=== PATIENT | female | born 1970 | race Hispanic/Latino ===

== ENCOUNTER 2018-02-16 16:51 | Outpatient (CLI) | payer OTHER | END 2018-02-16 16:52 | disposition home or self-care (01) | LOC: BICRAD 16:51 | PROVIDERS: ATTEND Family Medicine | DX: R05 Cough (principal) | CPT/HCPCS: 71046 ==

== ENCOUNTER 2018-10-18 12:01 | Outpatient (CLI) | payer OTHER ==
--- NOTE | 2018-10-18 13:22 | RAD ---
LUMBAR SPINE SERIES 2 VIEWS: HISTORY: Back pain x 2 weeks. COMPARISON: 02/26/09 study. FINDINGS: Vertebral bodies are normal in height. Disk space height appears fairly well maintained. There are osteophytic changes seen along the course of the spine. No spondylolisthesis. IMPRESSION: Mild arthritic changes of the spine. POS: [facility]
== END 2018-10-18 12:02 | disposition home or self-care (01) ==
LOC: BICRAD 12:01
PROVIDERS: ATTEND Family Medicine
DX: M54.5 Low back pain (principal); M47.816 Spondylosis without myelopathy or radiculopathy, lumbar region
CPT/HCPCS: 72100

== ENCOUNTER 2019-02-14 10:18 | Outpatient (CLI) | payer OTHER ==
--- NOTE | 2019-02-14 10:53 | RAD ---
THREE VIEWS RIGHT FOOT: COMPARISON: None. HISTORY: Right foot pain with bruising. FINDINGS: Three views right foot show no evidence of acute fracture or dislocation. No degenerative changes ar e seen. No soft tissue swelling is seen. IMPRESSION: No evidence of acute osseous abnormality. POS: [facility]
== END 2019-02-14 10:19 | disposition home or self-care (01) ==
LOC: BICRAD 10:18
PROVIDERS: ATTEND Family Medicine
DX: M79.671 Pain in right foot (principal)

== ENCOUNTER 2019-07-19 15:21 | Outpatient (CLI) | payer OTHER ==
--- NOTE | 2019-07-19 15:39 | RAD ---
XR Elbow Rt 4 View STANDARD History: Pain Comparison: None. Findings: No acute fracture or malalignment. Chronic lateral epicondylitis. No significant joint effu ajson. Impression: Chronic lateral epicondylitis otherwise unremarkable exam.
--- NOTE | 2019-07-19 15:49 | RAD ---
RIGHT HAND THREE VIEWS: HISTORY: Right hand pain. COMPARISON: 02/26/2009 FINDINGS: No fracture, dislocation, bony destruction or significant arthritic changes are identified. POS: [facility]
--- NOTE | 2019-07-19 15:50 | RAD ---
RIGHT FOREARM TWO VIEWS: HISTORY: Right forearm pain. FINDINGS: The right radius and ulna are intact. No significant bony abnormalities are seen. POS: [facility]
== END 2019-07-19 15:22 | disposition home or self-care (01) ==
LOC: BICRAD 15:21
PROVIDERS: ATTEND Family Medicine
DX: M79.631 Pain in right forearm (principal); M25.521 Pain in right elbow; M79.641 Pain in right hand; M77.11 Lateral epicondylitis, right elbow

== ENCOUNTER 2019-10-31 09:55 | Outpatient (CLI) | payer OTHER ==
--- NOTE | 2019-11-01 12:41 | MMO ---
Bilateral MAMMO Bilat Screen DDI+YANIRA. CLINICAL HISTORY: Patient is 49 years old and is seen for screening. The patient has no family history of breast cancer. The patient has no personal history of cancer. VIEWS: The views performed were: bilateral craniocaudal with tomosynthesis and bilateral mediolateral oblique with tomosynthesis. FILMS COMPARED: The present examination has been compared to prior imaging studies performed at [facility] on 12/11/2012, 02/06/2014, 02/12/2015 and 06/21/2016. This study has been interpreted with the assistance of computer-aided detection. MAMMOGRAM FINDINGS: The breasts are heterogeneously dense, which could obscure a lesion on mammography. Finding 1: Benign calcifications are noted bilaterally. Finding 2: New tiny calcs are seen in the left retroaerolar region on CC view IMPRESSION: FINDING 1: FINDINGS IN BOTH BREASTS ARE BENIGN. FINDING 2: FINDING IN THE LEFT BREAST REQUIRES ADDITIONAL EVALUATION. SPOT MAGNIFICATION VIEW(S) ARE RECOMMENDED. THE RESULTS OF THIS EXAM WERE SENT TO THE PATIENT. ACR BI-RADS Category 0 - Incomplete: Need additional imaging evaluation. [facility] will notify the patient of the need for additional imaging services. MAMMOGRAPHY NOTE: 1. A negative mammogram report should not delay a biopsy if a dominant of clinically suspicious mass is present. 2. Approximately 10% to 15% of breast cancers are not detected by mammography. 3. Adenosis and dense breasts may obscure an underlying neoplasm. Reported by: ABRAM DONALDSON MD Electonically Signed: [id number]
== END 2019-10-31 09:56 | disposition home or self-care (01) ==
LOC: BICMAMMO 09:55
PROVIDERS: ATTEND Family Medicine
DX: Z12.31 Encounter for screening mammogram for malignant neoplasm of breast (principal)
CPT/HCPCS: 77063; 77067

== ENCOUNTER 2019-11-08 08:36 | Outpatient (CLI) | payer OTHER ==
--- NOTE | 2019-11-08 09:05 | MMO ---
Left Breast MAMMO Unilat Diag DDI LT+YANIRA. CLINICAL HISTORY: Patient is 49 years old and is seen for additional evaluation requested from prior study. The patient has no family history of breast cancer. The patient has no personal history of cancer. VIEWS: The views performed were: left craniocaudal spot compression magnification; left mediolateral spot compression magnification; and left mediolateral with tomosynthesis. FILMS COMPARED: The present examination has been compared to prior imaging studies performed at [facility] on 02/06/2014, 02/12/2015, 06/21/2016 and 10/31/2019. This study has been interpreted with the assistance of computer-aided detection. MAMMOGRAM FINDINGS: The breast is heterogeneously dense, which could obscure a lesion on mammography. There are calcifications with grouped or clustered distribution seen in the left breast at 12 o'clock. There are similar groupings of calcifications elsewhere in each breast. These were probably present on the 2016 exam, with limitations in evaluation due to the non-tomographic nature of the prior. IMPRESSION: CALCIFICATIONS IN THE LEFT BREAST ARE PROBABLY BENIGN. FOLLOW-UP IN 6 MONTHS IS RECOMMENDED. THE RESULTS OF THIS EXAM WERE SENT TO THE PATIENT. ACR BI-RADS Category 3 - Probably benign finding - short interval follow-up suggested. [facility] will notify the patient of the need for additional imaging services. MAMMOGRAPHY NOTE: 1. A negative mammogram report should not delay a biopsy if a dominant of clinically suspicious mass is present. 2. Approximately 10% to 15% of breast cancers are not detected by mammography. 3. Adenosis and dense breasts may obscure an underlying neoplasm. Reported by: GEORGE CULLEN MD Electonically Signed: [id number]
--- NOTE | 2019-11-08 13:00 | RAD ---
PA AND LATERAL CHEST: Date: 11/08/2019 HISTORY: Cough. COMPARISON: 11/04/2003 study. FINDINGS: Heart size and mediastinum are within normal limits. Lungs are clear of infiltrates. Elevation to the right hemidiaphragm again demonstrated. IMPRESSION: No active intrathoracic disease. Stable chest. POS: [facility]
== END 2019-11-08 08:37 | disposition home or self-care (01) ==
LOC: BICMAMMO 08:36
PROVIDERS: ATTEND Family Medicine
DX: R05 Cough (principal); R92.1 Mammographic calcification found on diagnostic imaging of breast
CPT/HCPCS: 71046; G0279

== ENCOUNTER 2020-05-22 09:32 | Outpatient (CLI) | payer OTHER ==
--- NOTE | 2020-05-22 10:42 | MMO ---
Left Breast MAMMO Unilat Diag DDI LT+YANIRA. CLINICAL HISTORY: Patient is 49 years old and is seen for diagnostic exam. The patient has no family history of breast cancer. The patient has no personal history of cancer. VIEWS: The views performed were: left craniocaudal with tomosynthesis; left mediolateral oblique with tomosynthesis; and left mediolateral with tomosynthesis. FILMS COMPARED: The present examination has been compared to prior imaging studies performed at [facility] on 06/21/2016, 10/31/2019, 11/08/2019 and 05/22/2020. This study has been interpreted with the assistance of computer-aided detection. MAMMOGRAM FINDINGS: The breast is heterogeneously dense, which could obscure a lesion on mammography. Finding 1: There are stable calcifications with grouped or clustered distribution seen in the anterior region of the left breast at 12 o'clock. Finding 2: A new tiny anterior nodule close to the skin is seen at 1-2:00 positon in the left breast which is palpable and appears solid on US IMPRESSION: FINDING 1: STABLE CALCIFICATIONS IN THE LEFT BREAST ARE PROBABLY BENIGN. FOLLOW-UP IN 6 MONTHS IS RECOMMENDED. FINDING 2: FINDING IN THE LEFT BREAST IS SUSPICIOUS. AN ULTRASOUND-GUIDED BREAST BIOPSY IS RECOMMENDED. THE RESULTS OF THIS EXAM WERE SENT TO THE PATIENT. ACR BI-RADS Category 4 - Suspicious abnormality - biopsy should be considered D/W pt in person @ 10:[address] Vandana Renteria over the phone @ 10:35 am MAMMOGRAPHY NOTE: 1. A negative mammogram report should not delay a biopsy if a dominant of clinically suspicious mass is present. 2. Approximately 10% to 15% of breast cancers are not detected by mammography. 3. Adenosis and dense breasts may obscure an underlying neoplasm. Reported by: ABRAM DONALDSON MD Electonically Signed: [id number]
--- NOTE | 2020-05-22 14:35 | ULT ---
LEFT BREAST ULTRASOUND: Date: 05/22/2020 HISTORY: Palpable mass at the 1-2 o'clock position of the left breast. FINDINGS: Correlation is made with mammograms from earlier today. Sonographic evaluation of the region of palpable abnormality between the 1 and 2 o'clock positions of the left breast demonstrates a well-circumscribed nonshadowing 5.0 x 2.0 x 5.0 mm solid nodule close to the skin. Since this is new, this should be biopsied. IMPRESSION: BI-RADS Category 4 - Suspicious abnormality. Since an ultrasound-guided biopsy is difficult to perfor m, recommend surgical consultation and excisional biopsy. Discussed in person with the patient at [address] Renteria at 1035 hours and 1325 hour s. CODE CR. POS: OFF
== END 2020-05-22 09:33 | disposition home or self-care (01) ==
LOC: BICMAMMO 09:32
PROVIDERS: ATTEND Family Medicine
DX: R92.8 Other abnormal and inconclusive findings on diagnostic imaging of breast (principal); R92.1 Mammographic calcification found on diagnostic imaging of breast
CPT/HCPCS: G0279

== ENCOUNTER 2020-09-04 13:24 | Outpatient (CLI) | payer OTHER ==
--- NOTE | 2020-09-04 14:36 | ULT ---
EXAM: US Breast Limited Lt PROVIDED CLINICAL HISTORY: Left breast palpable abnormalities COMPARISON: Diagnostic mammogram 09/04/2020, ultrasound 05/22/2020 FINDINGS: Limited sonographic interrogation was performed of the left breast in the region of 1:00. The sonogra [facility] appearance of the breast tissue in this region is normal. The previously described skin lesion is no longer evident compatible with the provided clinical history history of interval surgical excis ion with benign histology. IMPRESSION: No sonographic abnormality is evident in the region of clinical concern. Negative imaging findings sh ould not preclude further evaluation of a clinically suspicious finding. Patient is referred back to her clinician. BI-RADS 2 -- benign findings
--- NOTE | 2020-09-04 14:37 | MMO ---
Bilateral MAMMO Bilat Diag DDI+YANIRA. CLINICAL HISTORY: Patient is 49 years old and is seen for diagnostic exam. The patient has no family history of breast cancer. The patient has no personal history of cancer. The patient has a history of left Lumpectomy in June, - benign. VIEWS: The views performed were: bilateral craniocaudal with tomosynthesis; bilateral mediolateral oblique with tomosynthesis; and bilateral mediolateral with tomosynthesis. FILMS COMPARED: The present examination has been compared to prior imaging studies performed at [facility] on 11/08/2019, 05/22/2020 and 09/04/2020. This study has been interpreted with the assistance of computer-aided detection. MAMMOGRAM FINDINGS: The breasts are heterogeneously dense, which could obscure a lesion on mammography. Finding 1: There are stable calcifications with grouped or clustered distribution seen in the sub-areolar region of the left breast. Finding 2: There are no mammographic or sonographic abnormalities in the area of palpable concern. The patient is referred back to her clinician. Negative imaging findings should not preclude biopsy if clinical findings are suspicious. Finding 3: There are stable benign appearing calcifications seen in both breasts. IMPRESSION: FINDING 1: STABLE CALCIFICATIONS IN THE LEFT BREAST ARE PROBABLY BENIGN. FOLLOW-UP IN 6 MONTHS IS RECOMMENDED. FINDING 2: THERE ARE NO MAMMOGRAPHIC ABNORMALITIES IN THE AREA OF PALPABLE CONCERN. THE PATIENT IS REFERRED BACK TO HER CLINICIAN. NEGATIVE IMAGING FINDINGS SHOULD NOT PRECLUDE BIOPSY IF CLINICAL FINDINGS ARE SUSPICIOUS. THE RESULTS OF THIS EXAM WERE SENT TO THE PATIENT. ACR BI-RADS Category 3 - Probably benign finding - short interval follow-up suggested. [facility] will notify the patient of the need for additional imaging services. MAMMOGRAPHY NOTE: 1. A negative mammogram report should not delay a biopsy if a dominant of clinically suspicious mass is present. 2. Approximately 10% to 15% of breast cancers are not detected by mammography. 3. Adenosis and dense breasts may obscure an underlying neoplasm. Reported by: GEORGE CULLEN MD Electonically Signed: [id number]
== END 2020-09-04 13:25 | disposition home or self-care (01) ==
LOC: BICMAMMO 13:24
PROVIDERS: ATTEND Specialist
DX: N63.20 Unspecified lump in the left breast, unspecified quadrant (principal); R92.1 Mammographic calcification found on diagnostic imaging of breast
CPT/HCPCS: 77066; G0279

== ENCOUNTER 2020-10-01 15:32 | Outpatient (CLI) | payer OTHER ==
--- NOTE | 2020-10-01 16:36 | RAD ---
Chest 2 views HISTORY: COVID pneumonia. Chest pain. COMPARISON: 09/22/2020. FINDINGS: Cardiac silhouette and pulmonary vasculature are unremarkable. Mediastinum is midline. Right hemidiaphragm elevation is unchanged from the prior study. Subtle ill-defined parenchymal opacity overlying the lateral aspect of the right lower chest is sligh tly less dense than on the prior study. No lobar consolidation or evidence of pneumothorax. IMPRESSION : Partial clearing of left basilar infiltrate. Chronic-type findings are stable. No new abnormalities are demonstrated.
== END 2020-10-01 15:33 | disposition home or self-care (01) ==
LOC: BICRAD 15:32
PROVIDERS: ATTEND Family Medicine
DX: U07.1 COVID-19 (principal); R91.8 Other nonspecific abnormal finding of lung field; Q79.1 Other congenital malformations of diaphragm
CPT/HCPCS: 71046

== ENCOUNTER 2020-11-26 16:09 | Outpatient (CLI) | payer OTHER | END 2020-11-26 16:10 | disposition home or self-care (01) | LOC: BICRAD 16:09 | PROVIDERS: ATTEND Family Medicine | DX: J18.9 Pneumonia, unspecified organism (principal) | CPT/HCPCS: 71046 ==

== ENCOUNTER 2021-02-03 14:28 | Outpatient (CLI) | payer OTHER | END 2021-02-03 14:29 | disposition home or self-care (01) | LOC: BICCT 14:28 | PROVIDERS: ATTEND Urology | DX: R35.0 Frequency of micturition (principal); R68.2 Dry mouth, unspecified; Z87.440 Personal history of urinary (tract) infections; Z87.448 Personal history of other diseases of urinary system | CPT/HCPCS: 74178 ==

== ENCOUNTER 2021-07-14 14:05 | Outpatient (CLI) | payer OTHER | END 2021-07-14 14:06 | disposition home or self-care (01) | LOC: BICMAMMO 14:05 | PROVIDERS: ATTEND Family Medicine | DX: R92.8 Other abnormal and inconclusive findings on diagnostic imaging of breast (principal) | CPT/HCPCS: 77066; G0279 ==

== ENCOUNTER 2021-09-22 16:15 | Outpatient (CLI) | payer OTHER | END 2021-09-22 16:16 | disposition home or self-care (01) | LOC: BICRAD 16:15 | PROVIDERS: ATTEND Family Medicine | DX: J18.9 Pneumonia, unspecified organism (principal); Q79.1 Other congenital malformations of diaphragm | CPT/HCPCS: 71046 ==

== ENCOUNTER 2021-11-26 15:15 | Outpatient (CLI) | payer OTHER | END 2021-11-26 15:16 | disposition home or self-care (01) | LOC: BICRAD 15:15 | PROVIDERS: ATTEND Internal Medicine Rheumatology | DX: R06.9 Unspecified abnormalities of breathing (principal); M79.661 Pain in right lower leg; M79.662 Pain in left lower leg; M47.816 Spondylosis without myelopathy or radiculopathy, lumbar region | CPT/HCPCS: 72100 ==

== ENCOUNTER 2022-07-15 15:02 | Outpatient (CLI) | payer OTHER | END 2022-07-15 15:03 | disposition home or self-care (01) | LOC: BICMAMMO 15:02 | PROVIDERS: ATTEND Family Medicine | DX: Z12.31 Encounter for screening mammogram for malignant neoplasm of breast (principal); Z91.89 Other specified personal risk factors, not elsewhere classified | CPT/HCPCS: 77063; 77067 ==

== ENCOUNTER 2022-12-17 15:56 | Outpatient (CLI) | payer OTHER | END 2022-12-17 15:57 | disposition home or self-care (01) | LOC: BICRAD 15:56 | PROVIDERS: ATTEND Family Medicine | DX: M54.2 Cervicalgia (principal); M25.512 Pain in left shoulder; M47.812 Spondylosis without myelopathy or radiculopathy, cervical region | CPT/HCPCS: 72040 ==

== ENCOUNTER 2023-04-13 15:54 | Outpatient (CLI) | payer OTHER | END 2023-04-13 15:55 | disposition home or self-care (01) | LOC: RAD 15:54 | PROVIDERS: ATTEND Nurse Practitioner Women's Health | DX: J16.8 Pneumonia due to other specified infectious organisms (principal) | CPT/HCPCS: 71046 ==

== ENCOUNTER 2024-04-13 13:51 | Outpatient (CLI) | payer OTHER | END 2024-04-13 13:52 | disposition home or self-care (01) | LOC: BICULT 13:51 | PROVIDERS: ATTEND Internal Medicine Rheumatology | DX: R22.1 Localized swelling, mass and lump, neck (principal) | CPT/HCPCS: 76536 ==

== ENCOUNTER 2025-04-25 16:20 | Outpatient (CLI) | payer OTHER | END 2025-04-25 16:21 | disposition home or self-care (01) | LOC: RAD 16:20 | PROVIDERS: ATTEND Internal Medicine | DX: J98.6 Disorders of diaphragm (principal) | CPT/HCPCS: 76000 ==

== ENCOUNTER 2025-04-26 15:38 | Outpatient (CLI) | payer OTHER | END 2025-04-26 15:39 | disposition home or self-care (01) | LOC: SCSRAD 15:38 | PROVIDERS: ATTEND Family Medicine | DX: M25.512 Pain in left shoulder (principal); M25.511 Pain in right shoulder; M54.2 Cervicalgia | CPT/HCPCS: 72050 ==